=== PATIENT | female | born 1965 | race African-American/Black ===

== ENCOUNTER 2018-05-05 16:51 | Emergency (ER) | payer OTHER ==
[2018-05-05 19:33] LABS: Appearance,Urine Clear (Clear); Bilirubin,Urine Negative (Negative); Blood,Urine Negative (Negative); Color,Urine Light Yellow; Glucose,Urine (UA) Negative (Negative); Ketones,Urine Negative (Negative); Leukocyte Esterase,Urine Negative (Negative); Nitrite,Urine Negative (Negative); Protein,Urine Negative (Negative); Specific Gravity,Urine 1.004 (1.001-1.035); Urobilinogen,Urine <2.0 mg/dL (<2.0)
[2018-05-05 19:38] LABS: Basophils % (A) 1 %; Eosinophils # (A) 0.1 k/uL (0-0.7); Eosinophils % (A) 2 %; HCT 38.2 % (34.0-46.0); HGB 12.7 gm/dL (11.4-16.0); Lymphocytes # (A) 2.4 k/uL (1.0-4.8); Lymphocytes % (A) 49 %; MCH 31.9 pg (25.0-35.0); MCHC 33.1 g/dL (31.0-37.0); MCV 96.2 fL (80.0-100.0); Mean Platelet Volume 6.6; Monocytes # (A) 0.3 k/uL (0-1.0); Monocytes % (A) 7 %; Neutrophils # (A) 1.9 k/uL (1.3-7.7); Neutrophils % (A) 39 %; Platelet Count 197 k/uL (150-450); RBC 3.97 m/uL (3.80-5.40)
[2018-05-05 19:46] LABS: ALT 22 U/L (9-52); AST 27 U/L (14-36); Albumin 4.2 g/dL (3.5-5.0); Alcohol <10 mg/dL; Alkaline Phosphatase 54 U/L (38-126); Anion Gap 8 mmol/L; Blood Urea Nitrogen 11 mg/dL (7-17); Calcium 9.1 mg/dL (8.4-10.2); Carbon Dioxide 28 mmol/L (22-30); Chloride 104 mmol/L (98-107); Glucose 81 mg/dL (74-99); Magnesium 1.9 mg/dL (1.6-2.3); Potassium 3.8 mmol/L (3.5-5.1); Sodium 140 mmol/L (137-145); Total Bilirubin 0.3 mg/dL (0.2-1.3); Total Protein 6.7 g/dL (6.3-8.2)
--- NOTE | 2018-05-05 19:46 | ED ---
General Adult HPI <Marcelino Prieto - Last Filed: 05/06/18 14:40> - General Source: patient, RN notes reviewed Mode of arrival: ambulatory Limitations: altered mental status <Sukumar Moore - Last Filed: 05/23/18 12:48> - General Chief complaint: Psychiatric Symptoms Stated complaint: EPS eval Time Seen by Provider: 05/05/18 18:40 - History of Present Illness Initial comments: This is a 52-year-old female presents emergency Department from [facility] for evaluation. Patient states that she went there for drug and alcohol rehab states that she was sent here. Reports were given that she has broken speech she is difficult to understand and confused at times. Patient does admit to a long history of drug and alcohol abuse. She has no physical complaints. Patient states that she is using last 24 hours. Patient does have a history of crack cocaine use and alcohol. Patient reportedly has rapid speech which is disconnected and unable to answer questions appropriately. Patient denies any physical complaints. (Sukumar Moore) - Related Data Allergies Allergy/AdvReac Type Severity Reaction Status Date / Time No Known Allergies Allergy Verified 05/05/18 18:44 Review of Systems ROS Other: All systems not noted in ROS Statement are negative. <ConnerMarcelino kraus - Last Filed: 05/06/18 14:40> ROS Other: All systems not noted in ROS Statement are negative. <Sukumar Moore - Last Filed: 05/23/18 12:48> ROS Statement: Those systems with pertinent positive or pertinent negative responses have been documented in the HPI. Past Medical History Past Medical History: Unable to Obtain History of Any Multi-Drug Resistant Organisms: None Reported Past Surgical History: Unable to Obtain Past Psychological History: No Psychological Hx Reported Smoking Status: Current every day smoker Past Alcohol Use History: Abuse, Daily Past Drug Use History: Cocaine <Sukumar Moore - Last Filed: 05/23/18 12:48> General Exam Limitations: altered mental status General appearance: alert, in no apparent distress Head exam: Present: atraumatic, normocephalic, normal inspection Eye exam: Present: normal appearance, PERRL, EOMI. Absent: scleral icterus, conjunctival injection, periorbital swelling ENT exam: Present: normal exam, normal oropharynx, mucous membranes moist Neck exam: Present: normal inspection, full ROM. Absent: tenderness, meningismus, lymphadenopathy Respiratory exam: Present: normal lung sounds bilaterally. Absent: respiratory distress, wheezes, rales, rhonchi, stridor Cardiovascular Exam: Present: regular rate, normal rhythm, normal heart sounds. Absent: systolic murmur, diastolic murmur, rubs, gallop, clicks Neurological exam: Present: alert Psychiatric exam: Present: anxious Skin exam: Present: warm, dry, intact, normal color. Absent: rash <Sukumar Moore - Last Filed: 05/23/18 12:48> Vital Signs 05/05/18 05/06/18 05/06/18 18:42 06:20 14:24 Temperature 98.6 F 97.1 F L Pulse Rate 79 57 L 72 Respiratory 18 15 16 Rate Blood Pressure 118/74 133/76 100/57 O2 Sat by Pulse 98 100 Oximetry Medical Decision Making - Lab Data Result diagrams: 05/05/18 19:13 05/05/18 19:13 <Marcelino Prieto - Last Filed: 05/06/18 14:40> - Lab Data Result diagrams: 05/05/18 19:13 05/05/18 19:13 <Sukumar Moore - Last Filed: 05/23/18 12:48> - Medical Decision Making Medical decision making; a 52-year-old female who was sent emergency room after going through intake at [facility]. The patient has history of cocaine addiction. She was sent here because of schizophrenic behavior. She did have a history of schizophrenia. Labs were all normal except for the drug triage positive for cocaine. The patient did have a CAT scan and it was reviewed by radiologist his findings are ventricles have normal size. There is no mass effect or midline shift. There is no sign of intracranial hemorrhage. There is mild white matter hypodensity in the posterior parietal lobes. Calvarium is intact. Impression possible chronic small vessel ischemia in the posterior parietal lobes. No hemorrhage. No evidence of cortical infarcts. As read by Dr. Garcia. The patient is waiting to be evaluated by EPS. I completed a certificate for admission for the patient. Dr. Prieto Is been here in excess of 20 hours waiting to be transferred to another psychiatric facility. Dr. Prieto (Marcelino Prieto) - Lab Data Lab Results 08/03/18 08/03/18 08/03/18 Range/Units 19:13 19:13 19:13 WBC 5.0 (3.8-10.6) k/uL RBC 3.97 (3.80-5.40) m/uL Hgb 12.7 (11.4-16.0) gm/dL Hct 38.2 (34.0-46.0) % MCV 96.2 (80.0-100.0) fL MCH 31.9 (25.0-35.0) pg MCHC 33.1 (31.0-37.0) g/dL RDW 13.0 (11.5-15.5) % Plt Count 197 (150-450) k/uL Neutrophils % 39 % Lymphocytes % 49 % Monocytes % 7 % Eosinophils % 2 % Basophils % 1 % Neutrophils # 1.9 (1.3-7.7) k/uL Lymphocytes # 2.4 (1.0-4.8) k/uL Monocytes # 0.3 (0-1.0) k/uL Eosinophils # 0.1 (0-0.7) k/uL Basophils # 0.0 (0-0.2) k/uL Sodium 140 (137-145) mmol/L Potassium 3.8 (3.5-5.1) mmol/L Chloride 104 (98-107) mmol/L Carbon Dioxide 28 (22-30) mmol/L Anion Gap 8 mmol/L BUN 11 (7-17) mg/dL Creatinine 0.85 (0.52-1.04) mg/dL Est GFR (CKD-EPI)AfAm >90 (>60 ml/min/1.73 sqM) Est GFR (CKD-EPI)NonAf 79 (>60 ml/min/1.73 sqM) Glucose 81 (74-99) mg/dL Calcium 9.1 (8.4-10.2) mg/dL Magnesium 1.9 (1.6-2.3) mg/dL Total Bilirubin 0.3 (0.2-1.3) mg/dL AST 27 (14-36) U/L ALT 22 (9-52) U/L Alkaline Phosphatase 54 (38-126) U/L Total Protein 6.7 (6.3-8.2) g/dL Albumin 4.2 (3.5-5.0) g/dL Urine Color Light Yellow Urine Appearance Clear (Clear) Urine pH 7.0 (5.0-8.0) Ur Specific [place] 1.004 (1.001-1.035) Urine Protein Negative (Negative) Urine Glucose (UA) Negative (Negative) Urine Ketones Negative (Negative) Urine Blood Negative (Negative) Urine Nitrite Negative (Negative) Urine Bilirubin Negative (Negative) Urine Urobilinogen <2.0 (<2.0) mg/dL Ur Leukocyte Esterase Negative (Negative) Urine Opiates Screen Not Detected (NotDetected) Ur Oxycodone Screen Not Detected (NotDetected) Urine Methadone Screen Not Detected (NotDetected) Ur Propoxyphene Screen Not Detected (NotDetected) Ur Barbiturates Screen Not Detected (NotDetected) Valproic Acid ug/mL U Tricyclic Antidepress Not Detected (NotDetected) Ur Phencyclidine Scrn Not Detected (NotDetected) Ur Amphetamines Screen Not Detected (NotDetected) U Methamphetamines Scrn Not Detected (NotDetected) U Benzodiazepines Scrn Not Detected (NotDetected) Urine Cocaine Screen Detected H (NotDetected) U Marijuana (THC) Screen Not Detected (NotDetected) Serum Alcohol <10 mg/dL 05/06/18 Range/Units 00:00 WBC (3.8-10.6) k/uL RBC (3.80-5.40) m/uL Hgb (11.4-16.0) gm/dL Hct (34.0-46.0) % MCV (80.0-100.0) fL MCH (25.0-35.0) pg MCHC (31.0-37.0) g/dL RDW (11.5-15.5) % Plt Count (150-450) k/uL Neutrophils % % Lymphocytes % % Monocytes % % Eosinophils % % Basophils % % Neutrophils # (1.3-7.7) k/uL Lymphocytes # (1.0-4.8) k/uL Monocytes # (0-1.0) k/uL Eosinophils # (0-0.7) k/uL Basophils # (0-0.2) k/uL Sodium (137-145) mmol/L Potassium (3.5-5.1) mmol/L Chloride (98-107) mmol/L Carbon Dioxide (22-30) mmol/L Anion Gap mmol/L BUN (7-17) mg/dL Creatinine (0.52-1.04) mg/dL Est GFR (CKD-EPI)AfAm (>60 ml/min/1.73 sqM) Est GFR (CKD-EPI)NonAf (>60 ml/min/1.73 sqM) Glucose (74-99) mg/dL Calcium (8.4-10.2) mg/dL Magnesium (1.6-2.3) mg/dL Total Bilirubin (0.2-1.3) mg/dL AST (14-36) U/L ALT (9-52) U/L Alkaline Phosphatase (38-126) U/L Total Protein (6.3-8.2) g/dL Albumin (3.5-5.0) g/dL Urine Color Urine Appearance (Clear) Urine pH (5.0-8.0) Ur Specific [place] (1.001-1.035) Urine Protein (Negative) Urine Glucose (UA) (Negative) Urine Ketones (Negative) Urine Blood (Negative) Urine Nitrite (Negative) Urine Bilirubin (Negative) Urine Urobilinogen (<2.0) mg/dL Ur Leukocyte Esterase (Negative) Urine Opiates Screen (NotDetected) Ur Oxycodone Screen (NotDetected) Urine Methadone Screen (NotDetected) Ur Propoxyphene Screen (NotDetected) Ur Barbiturates Screen (NotDetected) Valproic Acid 19.6 ug/mL U Tricyclic Antidepress (NotDetected) Ur Phencyclidine Scrn (NotDetected) Ur Amphetamines Screen (NotDetected) U Methamphetamines Scrn (NotDetected) U Benzodiazepines Scrn (NotDetected) Urine Cocaine Screen (NotDetected) U Marijuana (THC) Screen (NotDetected) Serum Alcohol mg/dL Disposition <Marcelino Prieto - Last Filed: 05/06/18 14:40> <Sukumar Moore - Last Filed: 05/23/18 12:48> Clinical Impression: Depression, Schizophrenia Disposition: TRANSFER TO PSYCH HOSP/UNIT Referrals: None,Stated [Primary Care Provider] - 1-2 days
[2018-05-05 19:48] LABS: Amphetamine Screen,Urine Not Detected (NotDetected); Barbiturate Screen,Urine Not Detected (NotDetected); Benzodiazepines Screen,Urine Not Detected (NotDetected); Cocaine Screen,Urine Detected (NotDetected); Methadone Screen, Urine Not Detected (NotDetected); Opiate Screen,Urine Not Detected (NotDetected); Oxycodone Screen, Urine Not Detected (NotDetected); Phencyclidine Screen,Urine Not Detected (NotDetected); Tricyclic Antidepressant,Urine Not Detected (NotDetected); Urn Cannabinoid Scrn Not Detected (NotDetected)
--- NOTE | 2018-05-05 20:09 | CT ---
EXAMINATION TYPE: CT brain wo con DATE OF EXAM: 05/05/2018 COMPARISON: None HISTORY: ams CT DLP: [id number] mGycm Automated exposure control for dose reduction was used. FINDINGS: Ventricles have normal size. There is no mass effect nor midline shift. There is no sign of intracran ial hemorrhage. There is mild white matter hypodensity in the posterior parietal lobes. Calvarium is intact. IMPRESSION: POSSIBLE CHRONIC SMALL VESSEL ISCHEMIA IN THE POSTERIOR PARIETAL LOBES. NO HEMORRHAGE. NO EVIDENCE OF CORTICAL INFARCT.
[2018-05-06 06:25] VITALS: TEMP 97.1
[2018-05-06 14:25] VITALS: BP 100/57; PULSE 72; RESP 16
--- NOTE | 2018-05-08 04:52 | CDI ---
Documentation Clarification OP Dear Dr. Marcelino Prieto Please provide clinical impression. Thank you, Marisela Mitchell Tailer In If you have any questions, please contact Hospital Personnel Director at [phone] [facility]
== END 2018-05-06 19:43 ==
LOC: EC 16:51
DX: F20.9 Schizophrenia, unspecified (principal); F32.9 Major depressive disorder, single episode, unspecified; F17.200 Nicotine dependence, unspecified, uncomplicated
CPT/HCPCS: 36415; 70450; 80053; 80164; 80306; 80320; 81003; 83735; 85025; 99285